=== PATIENT | female | born 1950 | race Caucasian/White ===

== ENCOUNTER 2016-07-02 16:37 | Emergency (ER) | payer MEDICARE, OTHER ==
[~2016-07-02] VITALS: Ht 152.4 cm; Wt 59.0 kg
[2016-07-02 16:44] VITALS: BP 135/65
[2016-07-02] MEDS ORDERED: PERCOCET 10-321 EACH ORAL (16:44)
[2016-07-02] MEDS ORDERED: TOPIRAMATE25 MG ORAL (16:44)
[2016-07-02] MEDS ORDERED: METHADONE HCL10 MG PO (16:44)
[2016-07-02] MEDS ORDERED: Morphine Sulfate 4mg/ml Inj IVP ONE (17:15)
[2016-07-02] MEDS ORDERED: Ketorolac 30mg Inj IV ONE (17:15)
[2016-07-02 17:52] LABS: BASOPHILS % (AUTO) 0.9 % (0.0-2.0); EOSINOPHILS % (AUTO) 0.1 % (0.0-3.0); LYMPHOCYTES % (AUTO) 8.1 % (20.0-45.0); MEAN CORPUSCULAR HEMOGLOBIN 31.2 PG (27.0-31.0); MEAN CORPUSCULAR HGB CONC 33.2 G/DL (32.0-36.0); MEAN CORPUSCULAR VOLUME 94 FL (80-99); MEAN PLATELET VOLUME 7.6 FL (6.5-10.1); MONOCYTES % (AUTO) 6.6 % (1.0-10.0); NEUTROPHILS % (AUTO) 84.4 % (45.0-75.0); PLATELET COUNT 136 K/UL (150-450); RED BLOOD COUNT 4.44 M/UL (4.20-5.40); RED CELL DISTRIBUTION WIDTH 11.4 % (11.6-14.8); WHITE BLOOD COUNT 4.5 K/UL (4.8-10.8)
[2016-07-02 18:26] LABS: TROPONIN I < 0.30 ng/mL (<=0.30)
[2016-07-02 18:42] LABS: ALANINE AMINOTRANSFERASE 32 U/L (3-33); ANION GAP 23 (5-15); ASPARTATE AMINO TRANSFERASE 25 U/L (5-40); CARBON DIOXIDE 18 mEQ/L (20-30); CHLORIDE 96 mEQ/L (98-107); CREATININE 0.7 mg/dL (0.5-0.9); GLOMERULAR FILTRATION RATE > 60 mL/min (>60); HEMOLYSIS 4; POTASSIUM 3.2 mEQ/L (3.4-4.9); SODIUM 137 mEQ/L (135-145); TOTAL PROTEIN 7.4 g/dL (6.6-8.7)
[2016-07-02 18:52] LABS: CKMB < 1.5 ng/mL (< 3.8)
[2016-07-02 18:56] VITALS: BP 122/66
[2016-07-02 19:06] LABS: APPEARANCE,URINE CLEAR; KETONES,URINE 4+ (NEGATIVE); LEUKOCYTE ESTERASE ,URINE NEGATIVE (NEGATIVE); NITRITE,URINE NEGATIVE (NEGATIVE); PH,URINE 9 (4.5-8.0); PROTEIN,URINE NEGATIVE (NEGATIVE); UROBILINOGEN,URINE NORMAL MG/DL (0.0-1.0)
[2016-07-02 19:33] VITALS: BP 122/66
--- NOTE | 2016-07-03 10:58 | Diagnostic Imaging Report ---
Indication: Chest Pain Comparison: 06/14/2008 A single view chest radiograph was obtained. Findings: No definite infiltrate or pulmonary vascular congestion identified. The heart is normal in size. The aorta is mildly enlarged consistent with atherosclerotic vascular disease. The bones are osteopenic. Impression: No acute disease
--- NOTE | 2016-07-03 22:51 | Emergency Room Report ---
History of Present Illness General Chief Complaint: Flu Like Symptoms Source: Medical Record, EMS Present Illness HPI 65-year-old female presents ED complaining of generalized bodyaches and pain. States symptoms started today. Cushion Maker Hand call 911. Patient states she does have history of chronic pain. Takes oxycodone and methadone at home. 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 Patient states pain is throbbing,, 10 out of 10, nonradiating. No aggravating or relieving factors. Denies fevers or chills. Denies nausea or vomiting. Denies chest pain or shortness of breath. No other aggravating or relieving factors. Denies any other associated symptoms Allergies: Coded Allergies: AMOXICILLIN (Verified Allergy, Unknown, 07/02/16) CLAVULANIC ACID (Verified Allergy, Unknown, 07/02/16) DOXYCYCLINE (Unverified Allergy, Unknown, 07/02/16) METOCLOPRAMIDE (Unverified Allergy, Unknown, 07/02/16) PENICILLIN G (Unverified Allergy, Unknown, 07/02/16) VANCOMYCIN (Verified Allergy, Unknown, 07/02/16) Uncoded Allergies: TAPE ADHERENT (Allergy, Unknown, 07/02/16) Patient History Past Medical History: migraines, other - behcets Past Surgical History: none Pertinent Family History: none Social History: Denies: alcohol use, drug use, smoking Now: No Immunizations: UTD Reviewed Nursing Documentation: PMH: Agreed, PSxH: Agreed Nursing Documentation-PMH Past Medical History: No History, Except For Hx Cardiac Problems: Yes - Systolic Murmur,Behcet's disease, chronic pain, migrains Hx Gastrointestinal Problems: Yes - GERD Review of Systems All Other Systems: negative except mentioned in HPI Physical Exam Vital Signs Date Time Temp Pulse Resp B/P Pulse Ox O2 Delivery O2 Flow Rate FiO2 07/02/16 16:30 98.4 88 22 127/74 98 Room Air Sp02 EP Interpretation: reviewed, normal General Appearance: no apparent distress, alert, GCS 15, non-toxic Head: normocephalic, atraumatic Eyes: bilateral eye PERRL, bilateral eye normal inspection ENT: hearing grossly normal, normal pharynx, no angioedema, normal voice Neck: full range of motion, supple/symm/no masses Respiratory: chest non-tender, lungs clear, normal breath sounds, speaking full sentences Cardiovascular #1: regular rate, rhythm, no edema Cardiovascular #2: 2+ carotid (R), 2+ carotid (L), 2+ radial (R), 2+ radial (L) , 2+ dorsalis pedis (R), 2+ dorsalis pedis (L) Gastrointestinal: normal bowel sounds, non tender, soft, non-distended, no guarding, no rebound Rectal: deferred Genitourinary: normal inspection, no CVA tenderness Musculoskeletal: back normal, gait/station normal, normal range of motion, non- tender Neurologic: alert, oriented x3, responsive, motor strength/tone normal, sensory intact, speech normal Psychiatric: judgement/insight normal, memory normal, mood/affect normal, no suicidal/homicidal ideation Reflexes: 3+ bicep (R), 3+ bicep (L), 3+ tricep (R), 3+ tricep (L), 3+ knee (R) , 3+ knee (L) Skin: normal color, no rash, warm/dry, well hydrated Lymphatic: no adenopathy Medical Decision Making Diagnostic Impression: Primary Impression: Generalized weakness Additional Impression: Chronic pain Qualified Codes: G89.29 - Other chronic pain ER Course 65-year-old female presents ED complaining of generalized body pain. History of Bechets disease Differential-chronic pain, drug seeking behavior, influenza, dehydration Patient placed on stretcher. After initial history and physical I ordered labs , IV fluids, chest x-ray, flu swab, Toradol and morphine for pain Labs-no leukocytosis, hemoglobin/hematocrit stable, electrolytes okay, UA negative, influenza negative Chest x-ray unremarkable On reassessment patient feels better. Wishes to be discharged. Cushion Maker Hand at bedside. Agrees with plan Diagnoses-generalized weakness, chronic pain Stable and discharged to home. Followup with PMD. Return to ED symptoms recur or worsen Labs Test 07/02/16 17:22 White Blood Count 4.5 K/UL (4.8-10.8) Red Blood Count 4.44 M/UL (4.20-5.40) Hemoglobin 13.9 G/DL (12.0-16.0) Hematocrit 41.8 % (37.0-47.0) Mean Corpuscular Volume 94 FL (80-99) Mean Corpuscular Hemoglobin 31.2 PG (27.0-31.0) Mean Corpuscular Hemoglobin Concent 33.2 G/DL (32.0-36.0) Red Cell Distribution Width 11.4 % (11.6-14.8) Platelet Count 136 K/UL (150-450) Mean Platelet Volume 7.6 FL (6.5-10.1) Neutrophils (%) (Auto) 84.4 % (45.0-75.0) Lymphocytes (%) (Auto) 8.1 % (20.0-45.0) Monocytes (%) (Auto) 6.6 % (1.0-10.0) Eosinophils (%) (Auto) 0.1 % (0.0-3.0) Basophils (%) (Auto) 0.9 % (0.0-2.0) Urine Color Yellow Urine Appearance Clear Urine pH 9 (4.5-8.0) Urine Specific [place] 1.010 (1.005-1.035) Urine Protein Negative (NEGATIVE) Urine Glucose (UA) Negative (NEGATIVE) Urine Ketones 4+ (NEGATIVE) Urine Occult Blood Negative (NEGATIVE) Urine Nitrite Negative (NEGATIVE) Urine Bilirubin Negative (NEGATIVE) Urine Urobilinogen Normal MG/DL (0.0-1.0) Urine Leukocyte Esterase Negative (NEGATIVE) Sodium Level 137 mEQ/L (135-145) Potassium Level 3.2 mEQ/L (3.4-4.9) Chloride Level 96 mEQ/L (98-107) Carbon Dioxide Level 18 mEQ/L (20-30) Anion Gap 23 (5-15) Blood Urea Nitrogen 11 mg/dL (7-23) Creatinine 0.7 mg/dL (0.5-0.9) Estimat Glomerular Filtration Rate > 60 mL/min (>60) Glucose Level 121 mg/dL (74-106) Lactic Acid Level 0.70 mmol/L (0.66-2.22) Calcium Level 9.0 mg/dL (8.6-10.2) Total Bilirubin 0.3 mg/dL (0.0-1.2) Aspartate Amino Transf (AST/SGOT) 25 U/L (5-40) Alanine Aminotransferase (ALT/SGPT) 32 U/L (3-33) Alkaline Phosphatase 122 U/L (35-104) Total Creatine Kinase 48 U/L (26-140) Creatine Kinase MB < 1.5 ng/mL (< 3.8) Creatine Kinase MB Relative Index Troponin I < 0.30 ng/mL (<=0.30) Total Protein 7.4 g/dL (6.6-8.7) Albumin 3.8 g/dL (3.5-5.2) Globulin 3.6 g/dL Albumin/Globulin Ratio 1.0 (1.0-2.7) Chest X-Ray Diagnostic Results EP Interpretation: Yes Findings: no consolidation, no effusion, no pneumothorax, no acute cardiopulmonary disease Number of Views: 1 Last Vital Signs Date Time Temp Pulse Resp B/P Pulse Ox O2 Delivery O2 Flow Rate FiO2 07/02/16 19:33 98.2 76 16 122/66 100 Room Air Status: improved Disposition: HOME, SELF-CARE Condition: Stable Referrals: JOHNSON CESPEDES (PCP) NOT CHOSEN [place]/,REFERRING Patient Instructions: Chronic Pain MICHELEL LOPES M.D. Jul 03, 2016 22:51
== END 2016-07-02 19:35 | disposition home or self-care (01) ==
LOC: EDBD 16:37 → EMR 17:10
DX: R53.1 Weakness (principal); G89.29 Other chronic pain; K21.9 Gastro-esophageal reflux disease without esophagitis; Z88.0 Allergy status to penicillin; Z91.048 Other nonmedicinal substance allergy status
CPT/HCPCS: 36415; 71010; 80053; 81003; 82550; 82553; 83605; 84484; 85025; 86710; 87040; 87181; 96374; 96375; 99284; J1885; J2270

== ENCOUNTER 2017-06-24 15:02 | Outpatient (CLI) | payer MEDICARE, OTHER ==
[~2017-06-24 15:02] MED LIST: METHADONE HCL10 MG PO; PERCOCET 10-321 EACH ORAL; TOPIRAMATE25 MG ORAL
--- NOTE | 2017-06-24 16:27 | Diagnostic Imaging Report ---
Indication: Cough Technique: 2 views of the chest Comparison: 07/02/2016 Findings: The lungs and pleural spaces are clear. Heart size is normal. The aorta is tortuous. There is a right arm PICC again demonstrated. Considerable bowel gas is noted Impression: No acute process. PICC
== END 2017-06-24 17:02 | disposition home or self-care (01) ==
LOC: RAD 15:02
DX: R05 Cough (principal)
CPT/HCPCS: 71046